=== PATIENT | female | born 1945 | race Caucasian/White ===

== ENCOUNTER 2021-01-08 16:58 | Emergency (ER) | payer MEDICARE, SELFPAY ==
[2021-01-08 17:17] VITALS: BP 165/58; PULSE 88; RESP 20; TEMP 36.4; O2SAT 100
[2021-01-08 17:19] VITALS: BP 165/58; PULSE 88; RESP 20; TEMP 36.4; O2SAT 100
--- NOTE | 2021-01-08 18:00 | ED.EYEPROB ---
HPI - Eye Problem General Chief complaint: Eye Problems Stated complaint: eye irritation Time Seen by Provider: 01/08/21 17:45 Source: patient Mode of arrival: ambulatory Limitations: no limitations History of Present Illness HPI Narrative: Dottie Mckeon is a 75 yo female with PMH anxiety, hypothyroid, who comes with R eye blurring and pain. Eye is tearing. Started this morning Related Data Home Medications Medication Instructions Recorded Confirmed latanoprost 0.005 % eye drops 1 drop EACH EYE DAILY 10/25/19 01/08/21 levothyroxine 112 mcg tablet 112 mcg PO DAILY 10/25/19 01/08/21 bupropion HCl 300 mg 24 hr tablet, 300 mg PO QAM 04/25/20 01/08/21 extended release amitriptyline 25 mg tablet 25 mg PO ONCE PRN 10/31/20 01/08/21 Allergies Allergy/AdvReac Type Severity Reaction Status Date / Time venlafaxine Allergy Severe pass out Verified 10/31/20 13:08 duloxetine Allergy Hives Verified 10/31/20 13:07 meperidine [From Demerol] AdvReac Vomiting Verified 01/08/21 17:18 Review of Systems Review of Systems: CONSTITUTIONAL: Denies fever, chills, sweats. EYES: Denies visual changes, right redness and pain, discharge. ENT: Denies rhinorrhea, congestion, sore throat, otalgia. CARDIOVASCULAR: Denies chest pain, palpitations, edema. RESPIRATORY: Denies dyspnea, wheezing, cough GASTROINTESTINAL: Denies abdominal pain, nausea, vomiting, diarrhea. GENITOURINARY: Denies dysuria, hematuria, abnormal discharge SKIN: Denies rash or itching. NEUROLOGIC: Denies numbness, or focal weakness. PSYCHIATRIC: Denies anxiety or depression. [facility] Past Medical History Medical History Eye disorder Hyperthyroidism Hypothyroidism Surgical History Surgical History Hx of breast implants, bilateral Family History Family History Sibling Hypertension Other Cerebrovascular accident Social History Social History Smoking packs per day: 1 Smoking cigarettes per day: 20.0 Years smoked: 45 Smoking pack-years: 45.00 Smoking status: Current every day smoker Tobacco type: cigarettes Second hand tobacco smoke exposure: Yes Alcohol intake: never Comments At time of signature, I agree with nursing past medical, surgical, social and family history. There is no relevant family history pertinent to the presenting complaint. Patient's blood pressure is elevated should follow-up with her primary care physician this week Exam Narrative: GENERAL: This is a well-nourished, well-developed patient, in mild distress. HEAD: normocephalic, atraumatic. EYES: PERRL. Sclera clear/whin. Hearing grossly intact. NOSE: External nose normal without nasal discharge, nares without redness, no rhinorrhea. THROAT: Mucous membranes moist, NECK: Neck supple, non-tender CARDIOVASCULAR: Regular rate and rhythm without murmurs, gallops, or rubs. RESPIRATORY: Clear to auscultation. Breath sounds equal bilaterally. Bilateral mild wheezes, rales, or rhonchi. GASTROINTESTINAL: Abdomen soft, SKIN: warm, intact with no suspicious lesions or rash, good texture and turgor. NEURO: awake, alert, and oriented to person, place and time. There were no obvious focal neurologic abnormalities. Steady gait EXTREMITIES: Normal range of motion. BACK: Nontender without deformity Course Course Emergency Course: [facility] and injection of her right eye Placing tetracaine drops and I used fluorescein stain and Warner lamp to explore eye, contact was folded in half way across to part of eye with discharge around it. 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
== END 2021-01-08 18:15 | disposition home or self-care (01) ==
PROVIDERS: Emergency Provider Nurse Practitioner; PCP Internal Medicine
DX: S05.01XA Injury of conjunctiva and corneal abrasion without foreign body, right eye, initial encounter (principal); X58.XXXA Exposure to other specified factors, initial encounter; F41.9 Anxiety disorder, unspecified; E03.9 Hypothyroidism, unspecified; E05.90 Thyrotoxicosis, unspecified without thyrotoxic crisis or storm
CPT/HCPCS: 99213; A9270; G0463

== ENCOUNTER 2021-12-12 23:04 | Emergency (ER) | payer MEDICARE, SELFPAY ==
--- NOTE | ~2021-12-12 | CT_ITS ---
EXAMINATION: CTA chest DATE: 12/13/2021 01:14 INDICATION: Chest pain radiating to the back. Shortness of breath. TECHNIQUE: Computed tomographic angiography (CTA) of the chest was performed with 100 mL Omnipaque-35 0 intravenous contrast. Automated exposure control and iterative reconstruction technique were employ ed. The dose-length product was 143.32 mGy-cm. Maximum intensity projection 3D-reconstructions of the aorta and other arteries were constructed by the technologist on a separate workstation. COMPARISON: Chest 2 views 12/12/2021 FINDINGS: There is mild scarring at the lung apices. There is moderate emphysema. There is mild atele ctasis bilaterally. No pleural effusion. There is a 5.6 cm fusiform aneurysm of ascending aorta. Ther e is a fusiform aneurysm of descending thoracic aorta measuring 3.8 cm near the diaphragm. Breast imp lants are noted. The heart size is normal. No pericardial effusion. There is mild chronic anterior we dging of multiple thoracic vertebral bodies. There is moderate thoracic spondylosis. IMPRESSION: 1. Fusiform aneurysm of thoracic aorta measuring up to 5.6 cm in ascending aorta. Surgical consultati on is recommended. 2. Moderate emphysema. Reviewed, dictated and finalized at location A. IMPRESSION: 1. Fusiform aneurysm of thoracic aorta measuring up to 5.6 cm in ascending aort a. Surgical consultation is recommended. 2. Moderate emphysema.
--- NOTE | ~2021-12-12 | XR_ITS ---
EXAMINATION: XR chest 2V DATE: 12/12/2021 23:44 INDICATION: Chest pain. Shortness of breath. TECHNIQUE: Frontal and lateral views of the chest were obtained. COMPARISON: Chest 2 views 12/11/2005, chest CT 12/13/2021 FINDINGS: There is mild scarring at the lung apices. There are lucencies in the lungs, consistent wit h emphysema. No pleural effusion or pneumothorax. The heart size is normal. There is a fusiform aneur ysm of ascending aorta. Breast implants are noted. IMPRESSION: 1. Emphysema. 2. Mild scarring at the lung apices. 3. Ascending aortic aneurysm. Reviewed, dictated and finalized at location A.
--- NOTE | 2021-12-12 23:06 | ECG_ITS ---
Measurements Intervals [place] Rate: 103 P: 56 WA: 148 QRS: -10 QRSD: 74 T: 58 QT: 326 QTc: 428 Interpretive Statements SINUS TACHYCARDIA POSSIBLE LEFT ATRIAL ENLARGEMENT CONSIDER INFERIOR INFARCT, AGE INDETERMINATE BASELINE ARTIFACT- V4 ABNORMAL ECG NO PREVIOUS ECG AVAILABLE FOR COMPARISON Electronically Signed On 12-13-2021 8:33:03 CDT by Faraz Medrano D.O.
[2021-12-12 23:17] VITALS: BP 105/76; PULSE 106; RESP 23; O2SAT 100
[2021-12-12 23:18] VITALS: PULSE 104; RESP 26; O2SAT 97
[2021-12-12 23:25] VITALS: BP 105/76; PULSE 102; RESP 20; O2SAT 97
[2021-12-12 23:30] VITALS: PULSE 100
[2021-12-12 23:34] VITALS: PULSE 100; RESP 19
[2021-12-12] MEDS: ASPIRIN 81 MG CHEWABLE TABLET 324 MG PO (23:53)
[2021-12-12] MEDS: MORPHINE SULFATE (*CRX) 2 MG/ML INJ IV PUSH (23:53)
[2021-12-13] VITALS (12 sets, daily range): BP systolic 108; BP diastolic 72; PULSE 89–100; RESP 19–33
[2021-12-13 00:12] LABS: Alanine Aminotransferase 10 U/L (6-35); Albumin Level 4.2 g/dL (3.5-5.1); Alkaline Phosphatase 96 U/L (38-126); Anion Gap 11 mmol/L (8-16); Aspartate Amino Transferase 24 U/L (14-36); Bilirubin,Total 0.5 mg/dL (0.2-1.3); Blood Urea Nitrogen 24 mg/dL (7-17); Calcium 8.9 mg/dL (8.4-10.2); Carbon Dioxide 26 mmol/L (22-30); Chloride 100 mmol/L (98-107); Estimated CRCL calculation 39 ml/min; Estimated Glomerular Filt Rate > 60; Glucose 103 mg/dL (65-110); Lipase 71 U/L (23-300); Potassium 4.1 mmol/L (3.4-5.0); Sodium 137 mmol/L (137-145)
[2021-12-13 00:14] LABS: Prothrombin Time 12.9 Seconds (11.1-14.7)
[2021-12-13 00:24] LABS: Troponin I < 0.012 ng/mL (0.000-0.034)
[2021-12-13 00:30] LABS: Basophils Absolute Auto 0.1 K/mm3 (0.0-0.1); Basophils Percent Auto 0.4 % (0.2-1.2); Eosinophils Absolute Auto 0.1 K/mm3 (0-0.3); Eosinophils Percent Auto 0.8 % (0-4.4); Hematocrit 33.3 % (37.0-47.0); Immature Granulocyte Absolute 0.07 K/mm3 (0.00-0.031); Immature Granulocyte Percent A 0.5 % (0-0.5); Lymphocytes Absolute Auto 2.33 K/mm3 (0.9-3.2); Lymphocytes Percent Auto 16.2 % (18.3-44.2); Mean Corpuscular Hemoglobin 30.6 pg (26-34); Mean Corpuscular Volume 92.8 fl (80-100); Mean Platelet Volume 10.8 fl (7.4-10.4); Monocytes Absolute Auto 1.9 K/mm3 (0.1-0.6); Monocytes Percent Auto 13.1 % (2.6-8.5); Neutrophils Absolute Auto 9.9 K/mm3 (1.3-6.7); Platelet Count Result 335 k/mm3 (150-375); Red Blood Count 3.59 M/mm3 (4.2-5.4); Red Cell Distribution Width 13.4 % (11.5-14.5); White Blood Count 14.3 K/mm3 (4.5-10.0)
[2021-12-13 02:50] LABS: Troponin I < 0.012 ng/mL (0.000-0.034)
--- NOTE | 2021-12-13 02:59 | ED.CHESTPAIN ---
HPI - Chest Pain General Chief Complaint: Chest Pain Stated Complaint: SOB, CP Time Seen by Provider: 12/12/21 23:11 History of Present Illness HPI narrative: Patient is a 76-year-old female who presents ER with chest pain and shortness of breath. Began this morning around 8:30 AM. Central chest discomfort. Worse with deep breath. Has not had similar pain before. Cannot describe alleviating factors. Patient is a smoker. Has had some shortness of breath with walking but no effects on the chest pain. No history of coronary disease. Related Data Home Medications Medication Instructions Recorded Confirmed levothyroxine 112 mcg tablet 112 mcg PO DAILY 10/25/19 11/05/21 (Levoxyl) Allergies Allergy/AdvReac Type Severity Reaction Status Date / Time venlafaxine Allergy Severe pass out Verified 11/05/21 14:24 duloxetine Allergy Hives Verified 11/05/21 14:24 meperidine [From Demerol] AdvReac Vomiting Verified 11/05/21 14:24 Review of Systems Review of Systems: All systems reviewed & are unremarkable except as noted in HPI and below Constitutional: Constitutional: Denies chills and Denies fever(s) Cardiovascular: Cardiovascular: Reports chest pain, Denies rapid heart rate and Denies radiating jaw, neck or arm pain Respiratory: Respiratory: Denies cough, Reports dyspnea and Denies wheezing Gastrointestinal: Gastrointestinal: Denies abdominal pain, Denies nausea and Denies vomiting Genitourinary: Genitourinary: Denies nocturia and Denies dysuria Musculoskeletal: Musculoskeletal: Denies back pain and Denies arthralgias Neurologic: Denies syncope, Denies numbness and Denies weakness [facility] Past Medical History Medical History Eye disorder Hyperthyroidism Hypothyroidism Surgical History Surgical History Hx of breast implants, bilateral Family History Family History Sibling Hypertension Other Cerebrovascular accident Social History Social History Smoking packs per day: 1 Smoking cigarettes per day: 20.0 Years smoked: 45 Smoking pack-years: 45.00 Smoking status: Current every day smoker Tobacco type: cigarettes Second hand tobacco smoke exposure: Yes Alcohol intake: never Exam Narrative: GENERAL: Well-appearing, well-nourished, and in no acute distress. HEAD: Normocephalic, atraumatic. EYES: PERRL and EOMI. ENT: Mucous membranes moist. CHEST: Clear to auscultation. No respiratory distress. HEART: Regular rate and rhythm. Normal peripheral pulses. ABDOMEN: Soft, nontender, nondistended. EXTREMITIES: Normal range of motion. No edema. SKIN: Warm, dry, no rash. NEURO: Alert and oriented x3. PSYCH: Normal mood and affect. Course Course Emergency Course: Patient denies knowledge of ascending aortic aneurysm. Discussed the size and need for surgical repair. She is pain-free. Her second troponin is negative. I have offered admission the hospital for her chest pain but patient declines. I discussed with her that she will need to speak to her PCP about referral to a cardiothoracic surgeon or vascular surgeon for repair of the ascending aortic aneurysm. She is verbalized understanding of this. Vital Signs Vital signs: Vital Signs Pulse Rate 102 H 12/12/21 23:25 Respiratory Rate 20 12/12/21 23:25 Blood Pressure 105/76 12/12/21 23:25 Pulse Oximetry 97 12/12/21 23:25 Oxygen Delivery Room Air 12/12/21 23:25 Pulse Rate 100 12/12/21 23:30 Respiratory Rate 20 12/12/21 23:25 Blood Pressure 105/76 12/12/21 23:25 Pulse Oximetry 97 12/12/21 23:25 Oxygen Delivery Room Air 12/12/21 23:25 MDM - Chest Pain Lab Data Result diagrams: 12/12/21 23:57 12/12/21 23:57 Labs: Lab Results 12/12/21 12/12/21
== END 2021-12-13 03:23 | disposition home or self-care (01) ==
PROVIDERS: Emergency Provider Emergency Medicine; PCP Internal Medicine
DX: R07.9 Chest pain, unspecified (principal); R00.0 Tachycardia, unspecified; F17.210 Nicotine dependence, cigarettes, uncomplicated
CPT/HCPCS: 36415; 71046; 71275; 80053; 83690; 84484; 85025; 85610; 85730; 93005; 96374; 99284; A9270; J2270; Q9967

== ENCOUNTER 2022-01-14 12:12 | Outpatient (CLI) | payer MEDICARE, SELFPAY ==
--- NOTE | 2022-01-14 16:05 | WPDPFTINT ---
PFT Procedure Performed PFT Procedure Performed Plethysmography (Lung Vol) Diffusing Cap (DLCO) Flow Vol Loop Spirometry w/o Bronchodil PFT Interpretation This is a pulmonary function test with spirometry, plethysmography and diffusing capacity. The test was performed and results interpreted in accordance with the 2019 and 2005 ATS/ERS Task Force guidelines respectively using the Global Lung Function Initiative-2012 reference equations. Patient demonstrated good effort and cooperation. Reproducibility criteria were met. The quality of the spirometry maneuver was Grade A. Findings: Spirometry: There is decreased maximal expiratory airflow at low lung volumes with concave expiratory flow tracing. The contour the inspiratory flow tracing is normal. The FVC is 1.85 L, 71% predicted. The FEV1 is 1.22 L, 61% predicted. The FEV1: FVC ratio 66%. Plethysmography: The total lung capacity is 4.58 L, 93% predicted. The functional residual capacity is 3.19 L, 114% predicted. The residual volume is 2.46 L, 110% predicted. Diffusing capacity: Diffusing capacity unadjusted for hemoglobin and carboxyhemoglobin is 7.5, 39% predicted. The diffusing capacity adjusted for alveolar volume is 2.83, 67% predicted. Impression: There is a moderate obstructive abnormality. The lung volumes are normal. The diffusing capacity unadjusted for hemoglobin is moderately decreased and normalizes when adjusted for alveolar volume. Impression: There is a moderately severe restrictive ventilatory abnormality. The spirometry is normal without evidence of an obstructive abnormality. The diffusing capacity unadjusted for hemoglobin and carboxyhemoglobin is severely decreased and remains mildly decreased when adjusted for alveolar volume. There are no prior studies for comparison
== END 2022-01-14 12:13 | disposition home or self-care (01) ==
PROVIDERS: PCP Internal Medicine; Visit Provider Nurse Practitioner
DX: J44.9 Chronic obstructive pulmonary disease, unspecified (principal); Z87.891 Personal history of nicotine dependence; R94.2 Abnormal results of pulmonary function studies
CPT/HCPCS: 94375; 94726; 94729